=== PATIENT | female | born 1995 | race Caucasian/White ===

== ENCOUNTER 2017-09-14 10:24 | Day surgery (SDC) | payer OTHER ==
[2017-09-14] MEDS ORDERED: Acetaminophen 500 MG TAB PO SCH (10:45)
[2017-09-14] MEDS ORDERED: Iron Sucrose Complex 500 MG in Sodium Chloride 0.9% 250 ML 250 ML IVPB SCH (11:15)
[2017-09-14 12:02] VITALS: BMI 27.3
[2017-09-14 12:17] VITALS: BP 100/60; TEMP 98.1
[2017-09-14] MEDS ORDERED: FLU VACC QS2017-18 36 mo. & older 0.5 ML SYRINGE IM ONE (12:30)
--- NOTE | 2017-09-14 14:26 | PDOC.LDHP ---
Labor and Delivery H&P Chief complaint: other (iron infusion) HPI: 22 yo @ 34.2 wks by 13.1 wk sono c/w LMP presents for an iron infusion. Pt denies vb, vaginal discharge. Reports contractions that come and go. Endorses normal movement. Endorses ruq pain that occurs daily and is described as sharp; Diagnosed with biliary colic in clinic and dietary restrictions and ER precautions provided. Current gestational age (weeks): 34 (34.2) Due date: 10/24/17 Dating criteria: last menstrual period Grav: 4 Para: 2 (2112) OB History Details: 2017 current : [place] 92% 07/14/2017; male 2016 twin gestation; spontaneous PTL with of twin A male@ 30 wks with prolonged NICU stay and PPH d/t retained placenta with subsequent D&C and EBL 150cc requiring 3U PRBC; demise at 16 wks of twin B 2014 41 wks no complications female 2013 39 wks no complications male Current complications: other (Anemia of ; GERD vs Cholelithiasis; Failed 1 Hr GGT) Abnormal US findings: No (cervical length 4.02 (prior PTL)) Past Medical History: 1.)Biliary colic Current medications: pre- vitamins, iron (PO and IV) Previous surgical history: none, other (D&C in 2016 for retained placenta) Social history: none - Physical Exam Vital signs reviewed and normal: yes (FHT: 140s) General: NAD, resting Heart: RRR Lungs: CTAB Abdomen: gravid Extremeties: no edema - OB Labs Blood type: O RH: positive Antibody Screen: negative HIV: negative RPR: negative HEPSAg: negative 1 hour GCT: positive 3 hour GTT: unknown (done today) GBS: unknown Urine drug screen: not done Rubella: immune Additional Labs: gonorrehea 04/2017 negative chlamydia 04/2017 negative quad screen: negative - Assessment 22 yo @ 34.2 wks by 13.1 wk sono c/w LMP presents for an iron infusion, complaining of daily ruq abdominal pain, diagnosed recently with biliary colic. - Plan -: 1.sIUP: pt at 34.2 @ 13.1 week sono cw LMP. Complains of righ upper quadrant pain. see below. Otherwise, continue routine care. 2.Anemia of , here for her first iron infusion. 3.Biliary colic-recommend follow-up in clinic with workup of cbc, cmp, and ruq ultrasound for persistent biliary colic/ruq pain. Pt's bps have been normal so no suspicion at this point for preE. <Alessandra Gomez - Last Filed: 09/14/17 15:56> <Wilfred Swenson - Last Filed: 09/14/17 16:38> Allergies/Adverse Reactions: Allergies Allergy/AdvReac Type Severity Reaction Status Date / Time No Known Allergies Allergy Verified 09/14/17 12:00 Attending Addendum - Attending Addendum Date/Time: 09/14/17 0123 I personally evaluated the patient and discussed the management with Dr. Marr. I agree with the History, Examination, Assessment and Plan documented above with any addition or exceptions noted below. Iron infusion. Follow up tomorrow in clinic. Denies abd pain to me today. ED warnings discussed. <Wilfred Swenson - Last Filed: 09/14/17 16:38>
== END 2017-09-14 15:50 | disposition home or self-care (01) ==
LOC: L&D/OP 10:24
PROVIDERS: ATTEND Emergency Medicine
DX: O99.013 Anemia complicating pregnancy, third trimester (principal); O99.89 Other specified diseases and conditions complicating pregnancy, childbirth and the puerperium; R10.11 Right upper quadrant pain; Z3A.34 34 weeks gestation of pregnancy; Z79.899 Other long term (current) drug therapy
CPT/HCPCS: J1756; J7050

== ENCOUNTER 2017-09-25 23:01 | Day surgery (SDC) | payer OTHER ==
[2017-09-25 23:34] VITALS: BP 112/62; TEMP 98.1; BMI 27.3
--- NOTE | 2017-09-26 | PDOC.LDHP ---
Labor and Delivery H&P Chief complaint: abdominal pain HPI: 22 yo at 35.6 by 13.2 wk US here with complaint of lower abdominal pain that started this afternoon after she lifted a case of water. She describes the pain as aching pain that starts on the lateral sides of her abdomen and radiates into her inguinal area. She denies loss of fluid, vaginal bleeding, decreased motion. She complains of infrequent contractions. Her has been complicated by anemia and is s/p Fe infusion. Current gestational age (weeks): 35 (35.6) Due date: 10/24/17 Dating criteria: first trimester ultrasound Grav: 4 Para: 3 (2102) Current complications: other (anemia) Current medications: none Previous surgical history: none Social history: none - Physical Exam Vital signs reviewed and normal: yes General: NAD Heart: RRR Lungs: CTAB Abdomen: gravid Extremeties: no edema FHT: category 1, variability present, absent or minimal variables [place] contractions every: few, inconsistent - Vaginal Exam cm dilated: 0 Effacement: 0% Station: -3 - OB Labs Blood type: O RH: positive Antibody Screen: negative HIV: negative RPR: negative HEPSAg: negative 1 hour GCT: positive (141) 3 hour GTT: unknown GBS: unknown Rubella: immune - Assessment Pain most consistent with round ligament pain - Plan -: Cat 1 strip, Baseline 130, for entire monitoring period. Few, inconsistent contractions. No loss of fluid, bleeding, or decreased movement. Continue to monitor. If no changes on monitor or symptoms, will send home with labor precautions. <James Guevara - Last Filed: 09/26/17 00:13> <Cha Chavarria - Last Filed: 09/26/17 00:28> Allergies/Adverse Reactions: Allergies Allergy/AdvReac Type Severity Reaction Status Date / Time No Known Allergies Allergy Verified 09/14/17 12:00 Attending Addendum - Attending Addendum Date/Time: 09/26/17 0026 I personally evaluated the patient and discussed the management with Dr. Guevara. I agree with the History, Examination, Assessment and Plan documented above. <Cha Chavarria - Last Filed: 09/26/17 00:28>
== END 2017-09-26 00:20 | disposition home or self-care (01) ==
LOC: L&D/OP 23:01
PROVIDERS: ATTEND Obstetrics & Gynecology
DX: O99.89 Other specified diseases and conditions complicating pregnancy, childbirth and the puerperium (principal); R10.30 Lower abdominal pain, unspecified; O99.011 Anemia complicating pregnancy, first trimester; D64.9 Anemia, unspecified; Z3A.13 13 weeks gestation of pregnancy; Z79.899 Other long term (current) drug therapy
CPT/HCPCS: 99282

== ENCOUNTER 2017-10-25 23:09 | Inpatient (IN) | payer MEDICAID, OTHER, SELFPAY ==
[2017-10-25 14:32] VITALS: BMI 28.5
--- NOTE | 2017-10-25 15:09 | PDOC.LDHP ---
Labor and Delivery H&P Chief complaint: abdominal pain, decreased movement, other (hip pain) HPI: 22yo at 40.1wk by LMP C/W 13.2wk US who presents to [facility] L&D with dec FM over the last week, worsened today. Does endorse episode of FM when I walked in to examine pt today. Also c/o hip pain that radiates to back and abd. Has not tried tylenol or benadryl qhs for symptom improvement. Drinkin 3-4 bottles of water per day. No fevers, chills, VB, ctx, LOF, discharge or other concerning symptoms. Current gestational age (weeks): 40 (40w1d) Due date: 10/24/17 Dating criteria: last menstrual period, first trimester ultrasound Grav: 4 OB History Details: h/o prior x 2 complications: 1) anemia s/p iron infusion 2) prior delivery at 30wk of mo-di-twin gestation with IUFD of Twin B at 16wks gestation due to TTS, retained placenta s/p D&C 3) short interpregnancy interval Current complications: none Abnormal US findings: No Past Medical History: anemia Current medications: pre-corey vitamins, iron Previous surgical history: dilation and curettage Allergies/Adverse Reactions: Allergies Allergy/AdvReac Type Severity Reaction Status Date / Time No Known Allergies Allergy Verified 09/14/17 12:00 Social history: none - Physical Exam Vital signs reviewed and normal: yes Abnormal vital signs: none (BP, temp & pulse wnl) General: NAD, resting Heart: RRR Lungs: nonlabored breathing Abdomen: NTTP Extremeties: no edema FHT: category 1, variability present [place] contractions every: none - Vaginal Exam cm dilated: 4 (cephalic) Effacement: 50% Station: -1 - OB Labs Blood type: O RH: positive Antibody Screen: negative HIV: negative RPR: negative HEPSAg: negative 1 hour GCT: positive (141) 3 hour GTT: passed GBS: negative Urine drug screen: not done Rubella: immune Additional Labs: Hgb 8 --> 10 s/p iron infusion - Assessment 22yo 1) Term sIUP, rule out labor 2) round ligament pain - Plan Plan: observation in L&D -: Obs in L&D for cervical change and start of labor
--- NOTE | 2017-10-25 15:39 | PDOC.LDHP ---
Labor and Delivery H&P HPI: Patient of the Clinic Seen with Dr Felipa Payan CC: Contractions at 40 weeks (sure dates) 22 yo (Hx twins with one IUFD with remainder twin PTB at 30 weeks, with D&C for retained placenta), here for contractions. No LOF, no HE, no trauma. Otherwise well. NOTE: Patient has full H&P handwritten in progress notes Review of Systems: Complete ROS completed and negative as per HPI Current gestational age (weeks): 40 Dating criteria: last menstrual period Grav: 4 Para: 3 (2103 (Parity)) Current complications: none Abnormal US findings: No Past Medical History: Hx IV Iron infusion this Current medications: pre-corey vitamins Allergies/Adverse Reactions: Allergies Allergy/AdvReac Type Severity Reaction Status Date / Time No Known Allergies Allergy Verified 09/14/17 12:00 - Physical Exam Vital signs reviewed and normal: yes General: NAD Heart: RRR Lungs: CTAB Abdomen: gravid - Vaginal Exam cm dilated: 4 Effacement: 75% Station: -1 - Assessment L&D Assessment: term patient in labor - Plan Plan: admit to L&D, labor augmentation if indicated (As patient is 40 weeks, we will keep in L&D and augment if needed (initial exam 4-5cm).), GBS antibiotic prophylaxis (if needed), anesthesia consult for pain management
--- NOTE | 2017-10-25 16:04 | PDOC.LDPN ---
Labor & Delivery Progress Note - Subjective Subjective: comfortable - Objective Vital signs reviewed and normal: yes General: resting Uterine fundus: non tender FHT: category 1, variability present [place] contractions every: 10 min - Assessment (1) Term Code(s): Z34.80 - ENCOUNTER FOR SUPRVSN OF NORMAL , UNSP TRIMESTER Current Visit: Yes Status: Acute (2) Anemia affecting in third trimester Code(s): O99.013 - ANEMIA COMPLICATING , THIRD TRIMESTER Current Visit: Yes Status: Acute Plan: pitocin for augmentation -: Discussed R/B/A of admission to hospital with augmentation of labor with pitocin vs. membrane stripping and given late latent labor and prior complications, pt elects to be admitted to hospital for augmentation of labor now. GBS neg. Undecided regarding epidural/pain mgmt. Will admit pt to L&D and begin pitocin.
[2017-10-25] MEDS: Lactated Ringer's 1,000 ML IV SCH ×2 (16:20→19:03)
[2017-10-25 16:51] LABS: Hemoglobin 10.3 g/dL (12.0-16.0); Mean Corpuscular HGB CONC 32.3 g/dL (32.0-36.0); Mean Corpuscular Hemoglobin 21.7 pg (27.0-31.0); Mean Corpuscular Volume 67.3 fl (81.0-99.0); Mean Platelet Volume 5.2 fL (7.4-10.4); Platelet Count 282 thou/uL (130-400); RBC Distribution Width 23.8 % (11.5-14.5); Red Blood Cell (RBC) Count 4.76 mill/uL (4.20-5.40); White Blood Cell (WBC) Count 5.9 thou/uL (4.8-10.8)
--- NOTE | 2017-10-25 17:22 | PDOC.LDPN ---
Labor & Delivery Progress Note - Subjective Subjective: painful contractions - Objective Vital signs reviewed and normal: yes Abnormal vital signs: VSS, bps 110s/70s General: breathing through contractions Uterine fundus: non tender SVE: deferred FHT: category 1, variability present [place] contractions every: 3-4 min - Assessment (1) Term Code(s): Z34.80 - ENCOUNTER FOR SUPRVSN OF NORMAL , UNSP TRIMESTER Current Visit: Yes Status: Acute (2) Anemia affecting in third trimester Code(s): O99.013 - ANEMIA COMPLICATING , THIRD TRIMESTER Current Visit: Yes Status: Acute Plan: continue plan of care, pitocin for augmentation -: 22 yo here for augmentation of labor post-dates now with painful contractions- order epidural for pain control. continue POC.
[2017-10-25 17:23] LABS: HBSAg Index 0.33 S/CO (0-0.99); Hep B Surf Ag Non-Reactive S/CO (NonReactive); Syphilis Antibody Nonreactive (Nonreactive); Syphilis Antibody Index 0.04 S/CO (<1.00 Non-Reactive)
--- NOTE | 2017-10-25 19:46 | PDOC.LDPN ---
Labor & Delivery Progress Note - Subjective Subjective: comfortable, no concerns - Objective Vital signs reviewed and normal: yes General: NAD, resting Uterine fundus: non tender SVE: 4/50/-1 FHT: category 1, variability present [place] contractions every: 2-4 min - Assessment (1) Term Code(s): Z34.80 - ENCOUNTER FOR SUPRVSN OF NORMAL , UNSP TRIMESTER Current Visit: Yes Status: Acute (2) Anemia affecting in third trimester Code(s): O99.013 - ANEMIA COMPLICATING , THIRD TRIMESTER Current Visit: Yes Status: Acute Plan: continue plan of care, pitocin for augmentation -: Pt unchanged by SVE after 3.5-4 hrs on pitocin. Epidural in place for pain mgmt. Currently in latent labor. Will continue to monitor and continue expectant mgmt to minimize excessive interventions. Discussed POC with Dr. Cleary who agrees with the above. <Felipa Payan - Last Filed: 10/25/17 19:44> Plan: continue plan of care, pitocin for augmentation (Faculty Note: As patient still in latent phase (4cm) without indication for internals at this time, we will not perform AROM. Continue pitocin trial of induction for 12 hours and if no cervical change and no immediate indication for continued induction, we may consider rest after 12 hours if still the same. ) <John Cleary - Last Filed: 10/25/17 19:53>
[~2017-10-25 23:09] MED LIST: Acetaminophen 325 MG TAB PO PRN; Acetaminophen 500 MG TAB PO PRN; Bupivacaine 0.25% 10 ML VIAL EPIDURAL ONE; Bupivacaine 0.5% 10 ML VIAL ONE; Bupivacaine 0.5% 20 ML, fentaNYL Citrate/PF 400 MCG in Sodium Chloride 0.9% 72 ML EPIDURAL SCH; Communication Order-Pharmacy FS SCH; DISCONTINUE ALL PREVIOUS NARCOTICS FS SCH; Eucerin (Mineral Oil/Petrolatum,White) 30 gm Jar TOP PRN; Fentanyl 100 MCG/2 ML VIAL I-THECAL ONE; Fentanyl 100 MCG/2 ML VIAL ONE; Fentanyl 4mcg/Marcaine 0.1% Cassette 100 ML EPIDURAL SCH; LR 500 ML/Oxytocin 10 units 500 ML IV SCH; Lactated Ringer's 500 ML IV PRN; Lidocaine 1% (PF) 30 ML VIAL ONE; NS / Oxytocin 40 units/1000ml 1,000 ML ONE; Naloxone HCl 0.4 mg/ml Vial IVP PRN; Ondansetron HCl/PF 4 MG/2 ML Vial IVP PRN; Promethazine HCl 25 MG/ML VIAL IM PRN; diphenhydrAMINE 50 MG/ML VIAL IVP PRN; ePHEDrine/0.9% NaCl/PF SYRINGE 50 mg/10 ml SLOW IVP PRN
--- NOTE | 2017-10-25 23:26 | PDOC.OPDEL ---
OB Operative/Delivery Note Delivery Dr/Surgeon: Sergei/Schuyler. faculty=Cleary Pre-Delivery Diagnosis: active labor Procedure/Post Delivery Dx: spontaneous vaginal delivery Anesthesia: epidural - Findings A Sex: male - 1 min: 8 - 5 min: 9 - Additional Findings/Plan Placenta delivered: spontaneous (Mike) Repaired Obstetrical Laceration: 2nd degree (Repaired by Enrique under my observation/supervision) Estimated blood loss: 300 Compilations/Other Findings: Vigorous male. Apgars 8/9 Counts correct Post delivery plan: routine recovery
[2017-10-25] MEDS ORDERED: Ibuprofen 800 MG TAB PO SCH (23:45)
[2017-10-26] MEDS ORDERED: Bisacodyl 10 MG SUPP PR PRN (00:14)
[2017-10-26] MEDS ORDERED: Preparation H Ointment 28 GM TUBE PR PRN (00:14)
[2017-10-26] MEDS ORDERED: Benzocaine/Menthol 20-0.5% 60 ML CAN TOP PRN (00:14)
[2017-10-26] MEDS ORDERED: Milk Of Magnesia 30 ML UDCUP PO PRN (00:14)
[2017-10-26] MEDS ORDERED: NS / Oxytocin 40 units/1000ml 1,000 ML IV SCH (00:14)
[2017-10-26] MEDS ORDERED: diphenhydrAMINE 25 MG CAP PO PRN (00:14)
[2017-10-26] MEDS ORDERED: Lanolin Ointment 7 GM TUBE TOP PRN (00:14)
[2017-10-26] MEDS ORDERED: NS / Oxytocin 40 units/1000ml 1,000 ML ONE (01:04)
--- NOTE | 2017-10-26 05:41 | PDOC.PP ---
Post Progress Note Post Day #: 1 Subjective: 22 yo now 4 pp day 1. @ 2244 10/25/17 with 2nd degree perineal lac. Pt currently resting comfortably in bed, denies pain. Tolerating po and ambulating. PO intake tolerated: yes Flatus: no Ambulation: yes Vital Signs (12 hours) Temp Pulse Resp BP Pulse Ox 10/26/17 03:30 97.9 F 72 18 111/73 10/26/17 02:23 98.2 F 71 18 126/70 10/26/17 01:15 97.8 F 72 18 98 10/25/17 20:41 98.1 F 78 18 Weight Weight 82.554 kg - Physical Examination General: NAD Cardiovascular: no m/r/g, RRR Respiratory: clear to auscultation bilaterally, non-labored breathing Abdominal: + bowel sounds, lochia (scant), no distention, appropriately TTP Fundus firm & at: umbilicus Neurological: no gross focal deficits Result Diagrams: 10/25/17 16:30 Additional Labs: Post Labs Blood Type O POSITIVE 10/25/17 16:30 Hep Bs Antigen Non-Reactive S/CO (NonReactive) 10/25/17 16:30 (1) Term delivered Code(s): O80 - ENCOUNTER FOR FULL-TERM UNCOMPLICATED DELIVERY Status: Acute - Assessment/Plan 22 yo now 4 pp day 1 s/p w/ 2nd degree perineal laceration, repaired and EBL of 300mL. Currently pain well controlled, tolerating po, ambulating and has voided after richardson removal. Continue stool softener pain management with tylenol and ibuprofen. Dermoplast prn.
[2017-10-26] MEDS: Ibuprofen 800 MG TAB PO SCH ×4 (05:58→23:45)
--- NOTE | 2017-10-26 06:14 | PDOC.PP ---
Post Progress Note Post Day #: 0-1 Subjective: Doing well. PO intake tolerated: yes Flatus: yes Vital Signs (12 hours) Temp Pulse Resp BP Pulse Ox 10/26/17 03:30 97.9 F 72 18 111/73 10/26/17 02:23 98.2 F 71 18 126/70 10/26/17 01:15 97.8 F 72 18 98 10/25/17 20:41 98.1 F 78 18 Weight Weight 182 lb - Physical Examination General: NAD Cardiovascular: no m/r/g Respiratory: clear to auscultation bilaterally Abdominal: lochia, appropriately TTP Extremities: negative homans (B) Neurological: no gross focal deficits Psychiatric: A&Ox3, normal affect Result Diagrams: 10/25/17 16:30 Additional Labs: Post Labs Blood Type O POSITIVE 10/25/17 16:30 Hep Bs Antigen Non-Reactive S/CO (NonReactive) 10/25/17 16:30 (1) Vaginal delivery Code(s): O80 - ENCOUNTER FOR FULL-TERM UNCOMPLICATED DELIVERY Status: Acute - Assessment/Plan Plan: No acute issues. Patient is day 0 to 1 later this PM. BPs normotensive. Probable discharge home tomorrow Monday. Case reviewed with Manish Mai ([employer]ident it sales consultant). Routine care.
[2017-10-26] MEDS: Prenatal Vitamin 1 TAB PO SCH (09:20)
[2017-10-26] MEDS: Docusate Calcium (SURFAK) 240 MG CAP PO SCH ×2 (09:20→21:47)
[2017-10-26] MEDS: Ferrous Sulfate 325 MG TAB PO SCH ×2 (09:20→17:43)
[2017-10-26] MEDS: Acetaminophen 325 MG TAB PO PRN ×2 (14:15→21:46)
[2017-10-26 23:18] VITALS: BP 105/60; TEMP 98.3
[2017-10-27] MEDS: Ibuprofen 800 MG TAB PO SCH (05:39)
--- NOTE | 2017-10-27 05:53 | PDOC.PP ---
Post Progress Note Post Day #: 1-2 Subjective: 22 yo [id number] day 1-2 delivered via . No acute events overnight. Pt reports some pain and sore mm throughout body. Pain is moderately well controlled with Ibuprofen, tylenol and dermoplast. Denies cp, nvdc. Tolerating PO, flatus, voiding, scant lochia. PO intake tolerated: yes Flatus: yes Ambulation: yes Vital Signs (12 hours) Temp Pulse Resp BP Pulse Ox 10/26/17 21:00 98.3 F 62 18 105/60 98 Weight Weight 82.554 kg - Physical Examination General: NAD Cardiovascular: no m/r/g, RRR Respiratory: clear to auscultation bilaterally, non-labored breathing Abdominal: + bowel sounds, lochia (scant rubra), no distention, appropriately TTP Extremities: negative homans (B) Neurological: no gross focal deficits Psychiatric: normal affect Result Diagrams: 10/25/17 16:30 Additional Labs: Post Labs Blood Type O POSITIVE 10/25/17 16:30 Hep Bs Antigen Non-Reactive S/CO (NonReactive) 10/25/17 16:30 (1) Term delivered Code(s): O80 - ENCOUNTER FOR FULL-TERM UNCOMPLICATED DELIVERY Status: Acute - Assessment/Plan continue pain control with Ibuprofen and tylenol scheduled. plan for dc to home today with f/u in 2 weeks w/ P[facility] <Javi Urbina - Last Filed: 10/27/17 05:55> Vital Signs (12 hours) Temp Pulse Resp BP Pulse Ox 10/26/17 21:00 98.3 F 62 18 105/60 98 Weight Weight 182 lb Result Diagrams: 10/25/17 16:30 Additional Labs: Post Labs Blood Type O POSITIVE 10/25/17 16:30 Hep Bs Antigen Non-Reactive S/CO (NonReactive) 10/25/17 16:30 <Nikolay Mitchell - Last Filed: 10/27/17 07:56> Attending Addendum - Attending Addendum Date/Time: 10/27/17 3361 I personally evaluated the patient and discussed the management with Dr. Urbina I agree with the History, Examination, Assessment and Plan documented above with any addition or exceptions noted below. Pt given precautions. <Nikolay Mitchell - Last Filed: 10/27/17 07:56>
[2017-10-27] MEDS: Docusate Calcium (SURFAK) 240 MG CAP PO SCH (09:35)
[2017-10-27] MEDS: Ferrous Sulfate 325 MG TAB PO SCH (09:35)
[2017-10-27] MEDS: Prenatal Vitamin 1 TAB PO SCH (09:35)
== END 2017-10-27 12:10 | disposition home or self-care (01) | DRG 775 ==
LOC: L&D/OP 23:09 → EDSTATUS 23:40 → L&D 23:43 → 3SW 10-26 01:12
PROVIDERS: ADMIT Obstetrics & Gynecology; ATTEND Obstetrics & Gynecology
PROC: 10E0XZZ Delivery of Products of Conception, External Approach (ICD-10-PCS; principal; 2017-10-25)
PROC: 0HQ9XZZ Repair Perineum Skin, External Approach (ICD-10-PCS; 2017-10-25)
DX: O70.1 Second degree perineal laceration during delivery (principal); O99.02 Anemia complicating childbirth; D64.9 Anemia, unspecified; Z3A.40 40 weeks gestation of pregnancy; Z37.0 Single live birth
CPT/HCPCS: 36415; 51702; 85027; 86780; 86850; 86900; 86901; 87340; 99285; J2001; J3010; J3490; J7050; J7120

== ENCOUNTER 2018-09-21 14:06 | Day surgery (SDC) | payer OTHER ==
[2018-09-21] MEDS ORDERED: Acetaminophen 500 MG TAB PO PRN (14:57)
[2018-09-21 15:07] VITALS: BMI 26.6
--- NOTE | 2018-09-21 15:24 | PDOC.FPROB ---
FMR OB H&P: HPI - History of Present Illness Chief Complaint: Iron infusion History of Present Illness: 23 yo at 31.2 wk dated by 19.4 wk US. Presents for iron infusion due to anemia and intolerance of PO iron. H&H during has trended from 9.9 to 8.1. She has a history of anemia with and required a blood transfusion in 2016. Primary Care Physician: [facility] FMR OB H&P: Current - Care : 5 Para: 3104 Gestational age: 31.2 Due date: 11/21/18 Dating Criteria: 19.4 wk US Course/Complications: Anemia, late to care, pyelonephritis. - OB Labs Blood type: O RH: positive Antibody Screen: negative HIV: negative RPR: negative HepBsAg: negative Rubella: immune Quad screen: unknown Urine drug screen: not done Gonorrhea: negative Chlamydia: negative Pap Smear: no record available 1 hour gtt: 129 GBS: unknown H&H: see HPI - First Trimester Ultrasound First trimester: performed at 19.4 wk. - Anatomy Survey Anatomy survey: posterior placenta, S=D, normal anatomy. FMR OB H&P: History - Past Medical History PMH: anemia of , blood transfusion - OB History OB History: Hx twin delivery with twin B demise at 16 wk. Twin A born at 30 wk and has developmental problems. Other deliveries normal. 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 - Surgical History Sx History: None - Social History Social History: Unremarkable - Family History Family History: HTN FMR OB H&P: Medications - Current Home Medications: Medication Instructions Recorded Confirmed Type No Known 09/21/18 09/21/18 History Allergies/Adverse Reactions: Allergies Allergy/AdvReac Type Severity Reaction Status Date / Time No Known Allergies Allergy Verified 09/14/17 12:00 FMR OB H&P: ROS - Review of Systems General: denies: fever/chills, weight/appetite/sleep changes Eyes: denies: eye pain, vision changes ENT: denies: nasal congestion, rhinorrhea Cardiovascular: denies: chest pain, palpitation Respiratory: denies: cough, congestion Gastrointestinal: denies: abdominal pain, indigestion Genitourinary (Female): denies: incontinence, dysuria Musculoskeletal: denies: pain, stiffness, tenderness Neurologic: denies: numbness, syncope Integumentary: denies: itching, rash Breast: denies: lumps, bumps Endocrine: denies: cold intolerance, heat intolerance Hematologic/Lymphatic: denies: prolonged or excessive bleeding Psychological: denies: depression, anxiety FMR OB H&P: Vital Signs - Maternal Vital signs: 105/58, pulse 73, resp 16, Temp 98.2F - Heart Tones Baseline: 140 Variability: moderate Acceleration: present Deceleration: absent Category: category 1 (reactive NST) [place] contractions every: none FMR OB H&P: Physical Exam - Physical Exam General: NAD, awake, alert and oriented HEENT: normocephalic and atraumatic, no scleral icterus Neck: supple, FROM Heart: RRR, normal S1/S2 General: CTAB, no respiratory distress Abdomen: soft, gravid Musculoskeletal: normal gait and station, pulses present Neurological: no tremor, no focal deficit Skin: no rash, good tugor Psychiatric: intact recent and remote memory, good judgement and insight FMR OB H&P: A/P - Problem List (1) Anemia affecting fifth Status: Acute Code(s): O99.019 - ANEMIA COMPLICATING , UNSPECIFIED TRIMESTER; O09.40 - SUPERVISION OF W GRAND MULTIPARITY, UNSP TRIMESTER (2) Status: Acute Qualifiers: Weeks of gestation: 31 weeks Qualified Code(s): Z3A.31 - 31 weeks gestation of Disposition: 1. Anemia of with intolerance of PO iron: outpatient iron infusion started. No anemia evaluation ordered so drawing Iron, TIBC, Ferritin, and % saturation before starting infusion. 2. Supervision grandmultip 3rd trimester: late to care but otherwise unremarkable . Discussion: Date/Time: 09/21/181519 This H&P was discussed with Dr. Logan who agree with the above documentation and plan. Addendum - Attending - Attending Attestation Date/Time: 09/21/181812 I personally evaluated the patient and discussed the management with Dr. Rosado I agree with the History, Examination, Assessment and Plan documented above with any addition or exceptions noted below. Patient here for iron infusion. Severe iron deficiency anemia. Unable to tolerate PO iron. FHT reactive. Will pretreat prior to infusion. Ok to d/c once complete. Follow up with [facility]. Micki
[2018-09-21] MEDS ORDERED: Iron Sucrose Complex 500 MG in Sodium Chloride 0.9% 250 ML 250 ML IVPB SCH (15:30)
[2018-09-21 17:06] LABS: Iron 15 ug/dL (50-170); Iron Binding Capacity, Total 459 mcg/dL (265-497)
== END 2018-09-21 21:33 | disposition home or self-care (01) ==
LOC: L&D/OP 14:06
PROVIDERS: ATTEND Emergency Medicine
DX: O99.013 Anemia complicating pregnancy, third trimester (principal); D50.9 Iron deficiency anemia, unspecified; O09.43 Supervision of pregnancy with grand multiparity, third trimester; Z3A.31 31 weeks gestation of pregnancy
CPT/HCPCS: 36415; 82728; 83540; 83550; 96361; 96365; 96366; 99284; J1756; J7050

== ENCOUNTER 2018-11-13 00:17 | Day surgery (SDC) | payer OTHER ==
[2018-11-13 00:51] VITALS: BP 116/76; TEMP 98.1; BMI 27.0
--- NOTE | 2018-11-13 01:26 | PDOC.FPROB ---
FMR OB H&P: HPI - History of Present Illness Chief Complaint: decreased movement and lower abdominal pain Indentification: History of Present Illness: The patient is a 23YO @ 38.5 weeks by LMP & 19.4wk sono who presented to L&D with a CC of decreased movement and lower abdominal pain. Regarding the decreased movement, the patient reports that she has only felt the fetus move ~ 4 x today and the last time was about 1 hour ago. She denies any vaginal bleeding, itching, pain, or discharge but did feel a small leakage of fluid around noon yesterday and noticied some clear fluid in her underwear. Regarding her abdominal pain, the patient reports having a constant, crampy lower abdominal pain for the last 3 days with a sharp radiating pain into her left inner thigh. She states that the pain is somewhat relieved but laying still but is not relieved with tylenol and is exacerbated with movement. She denies any associated fever/chills, N/V, or dysuria. Primary Care Physician: STAR Marr FMR OB H&P: Current - Care : 5 Para: 3104 Gestational age: 38.5 weeks Due date: 11/21/2018 Dating Criteria: LMP & 19.4 week sono Course/Complications: anemia in requiring 1 iron infusion on 09/21/18 - OB Labs Blood type: O RH: positive Antibody Screen: negative HIV: negative RPR: negative HepBsAg: negative Rubella: immune Gonorrhea: negative Chlamydia: negative 1 hour gtt: 129 GBS: negative H&H: 10.3/32 on 10/21/18 FMR OB H&P: History - Past Medical History PMH: none - OB History OB History: 4 prior pregnancies: #1 @ 39 weeks #2 @ 41 weeks #3 twin gestation with PTL & delivery of twin A @ 30 weeks & stillbirth of twin B @ 16 weeks #4 @ 40 weeks - Surgical History Sx History: none - Social History Social History: No TAD. - Family History Family History: Mom- HTN FMR OB H&P: Medications - Current Home Medications: Medication Instructions Recorded Confirmed Type No Known 09/21/18 11/13/18 History Allergies/Adverse Reactions: Allergies Allergy/AdvReac Type Severity Reaction Status Date / Time No Known Allergies Allergy Verified 11/13/18 00:45 FMR OB H&P: ROS - Review of Systems General: denies: fever/chills, weight/appetite/sleep changes Eyes: reports: eye pain, floaters. denies: vision changes, scotomas Cardiovascular: denies: chest pain, edema Respiratory: reports: shortness of breath. denies: cough Gastrointestinal: reports: abdominal pain, cramping. denies: nausea, vomiting Genitourinary (Female): denies: dysuria, hematuria, vaginal discharge, vaginal pain, vaginal bleeding, contractions, vaginal pressure Musculoskeletal: reports: pain Neurologic: denies: loss of counsciousness, headache FMR OB H&P: Vital Signs - Maternal Vital signs: Vital Signs - First Documented Temp Pulse Resp BP 98.1 F 86 18 116/76 11/13/18 00:44 11/13/18 00:44 11/13/18 00:44 11/13/18 00:44 - Heart Tones Baseline: 110 Variability: moderate Acceleration: present Deceleration: absent [place] contractions every: 7-20 minutes FMR OB H&P: Physical Exam - Physical Exam General: NAD, awake, alert and oriented HEENT: normocephalic and atraumatic, conjunctiva clear, grossly normal vision, grossly normal hearing Neck: supple, FROM Heart: RRR, normal S1/S2, no murmurs/rubs/gallops, pulses present, no edema General: CTAB, no respiratory distress, good air movement, no rales/rhonchi, no wheezing, no retractions Abdomen: soft, gravid, non-tender Musculoskeletal: pulses present, FROM in all four extremities Neurological: cranial nerves II through XII intact, sensation to pain,touch and proprioception grossly normal, no focal deficit Skin: no rash, good tugor, capillary refill <2 seconds, no jaundice Lymphatic: no unusual bruising or bleeding, no purpura, no petechia Psychiatric: intact recent and remote memory, good judgement and insight, normal mood and affect - Pelvic Exam Vulva: normal hair distribution, no masses, no lesions, no blood, normal rugae Deviation from normal: scant amount of thin white discharge w/ no obvious pooling noted FMR OB H&P: A/P - Problem List (1) Decreased movement Status: Acute Code(s): O36.8190 - DECREASED MOVEMENTS, UNSP TRIMESTER, UNSP (2) Abdominal pain Status: Acute Code(s): R10.9 - UNSPECIFIED ABDOMINAL PAIN (3) Anemia affecting fifth Status: Acute Code(s): O99.019 - ANEMIA COMPLICATING , UNSPECIFIED TRIMESTER; O09.40 - SUPERVISION OF W GRAND MULTIPARITY, UNSP TRIMESTER (4) Status: Acute Qualifiers: Weeks of gestation: 31 weeks Qualified Code(s): Z3A.31 - 31 weeks gestation of (5) History of stillbirth in patient in third trimester, antepartum Status: Acute Code(s): O09.293 - SUPRVSN OF PREG W POOR REPRODCTV OR OBSTET HX , THIRD TRI (6) History of labor, current Status: Acute Code(s): O09.219 - SUPRVSN OF PREG W HISTORY OF PRE-TERM LABOR, UNSP TRIMESTER Disposition: Decreased movement: - FHTs reassuring --> reactive NST with baseline in the 110s and multiple accels lasting at least 15 seconds and greater than 15 beats above baseline within a 20 minute period. - Mom reassured of well-being. Abdominal pain: - Most likely 2/2 pelvic MSK strain in late . However, given region of pain with r/o a possible UTI & treat PRN based on results of straight cath UA. - Will substance abuse counselor on taking regularly scheduled tylenol for more adequate pain control. Leakage of fluid: - Will R/O SROM with amnisure. Sterile speculum exam did not reveal any pooling. anemia in : - Aware, patient s/p 1 iron infusion this . Is not taking PO iron or PNVs due to reports of them making her sick. S/p an iron infusion the first of September. Reports recently having bloodwork done to assess the need for another infusion and is waiting to hear back regarding the results. Will instruct her to f/u at [facility] regarding this. RUQ in : - Patient has not yet had a RUQ U/S. Waiting to hear back to schedule this. Will instruct her to f/u on this as instructed by her PCP at [facility]. sIUP @ 38.5 weeks: - Aware, will instruct to keep regular f/u appt at [facility] upon likely discharge. late to [facility] h/o stillbirth h/o PTL @ 30 weeks Discussion: Date/Time: 11/13/18 0126 This H&P was discussed with Dr. Olmstead who agrees with the above documentation and plan. Addendum - Attending - Attending Attestation Date/Time: 11/13/18 671 I personally evaluated the patient and discussed the management with Dr. Combs at time of evaluation last night. I agree with the History, Examination, Assessment and Plan documented above with any addition or exceptions noted below.
[2018-11-13 02:43] LABS: Amnisure Internal Control QC ACCEPTABLE (ACCEPTABLE)
[2018-11-13 02:51] LABS: Amnisure Test No Membranes Rupture (No Rupture); Bilirubin Negative (Negative); Blood, Urine Negative (Negative); Clarity CLEAR (Clear); Glucose, Urine (Dipstick) Negative (Negative); Leukocyte Small (Negative); Nitrite Negative (Negative); Protein, Urine (Dipstick) Negative (Neg-Trace); Specific Gravity, Urine 1.013 (1.002-1.036); Urobilinogen 0.2 mg/dL (0.2-1.0)
[2018-11-13 02:52] LABS: Bacteria/HPF None Seen HPF (None Seen); Hyaline Casts/LPF 0-3 HYALINE CAST LPF (0-3 Hyaline); RBC/HPF 0-3 HPF (0-3); Squamous Epithelial 0-3 HPF (0-3)
== END 2018-11-13 03:23 | disposition home or self-care (01) ==
LOC: L&D/OP 00:17
PROVIDERS: ATTEND Family Medicine
DX: O36.8130 Decreased fetal movements, third trimester, not applicable or unspecified (principal); O99.89 Other specified diseases and conditions complicating pregnancy, childbirth and the puerperium; R10.30 Lower abdominal pain, unspecified; O99.013 Anemia complicating pregnancy, third trimester; O09.43 Supervision of pregnancy with grand multiparity, third trimester; O09.293 Supervision of pregnancy with other poor reproductive or obstetric history, third trimester; O09.213 Supervision of pregnancy with history of pre-term labor, third trimester; Z3A.38 38 weeks gestation of pregnancy
CPT/HCPCS: 51701; 81001; 84112; 99284

== ENCOUNTER 2020-04-02 11:55 | Outpatient (CLI) | payer OTHER ==
[2020-04-02 19:07] LABS: SARS-CoV-2 MS2 Positive; SARS-CoV-2 N Gene Negative; SARS-CoV-2 S Gene Negative; SARS-CoV-2 by NAA Not Detected (NotDetected); SARS-CoV-2 orf1ab Negative
== END 2020-04-02 11:56 | disposition home or self-care (01) ==
LOC: LABSCS 11:55
PROVIDERS: ATTEND Student in an Organized Health Care Education/Training Program
DX: Z20.828 Contact with and (suspected) exposure to other viral communicable diseases (principal)
CPT/HCPCS: 87635; U0003

== ENCOUNTER 2020-04-04 15:36 | Day surgery (SDC) | payer MEDICAID, OTHER ==
[2020-04-04] MEDS ORDERED: Acetaminophen 500 MG TAB PO SCH (16:30)
[2020-04-04] MEDS ORDERED: Iron Sucrose Complex 500 MG in Sodium Chloride 0.9% 250 ML 250 ML IVPB SCH (16:30)
[2020-04-04 16:37] VITALS: BP 113/66; TEMP 98.2; BMI 27.0
--- NOTE | 2020-04-04 19:21 | PDOC.FPROB ---
FMR OB H&P: HPI - History of Present Illness Chief Complaint: Iron infusion Indentification: 24 yo @ 35 wga History of Present Illness: Pt is 24 yo female who presents to L&D for iron infusion. [facility] records are not available at this time, so all history is obtained from patient. Per the patient, she has anemia outside of and was told to come to L&D for an iron infusion. She takes a vitamin and oral iron at home. She endorses weakness and occasional headache relieved with tylenol. She denies vaginal bleeding, vaginal discharge, dysuria, LOF, contractions, SOB, chest pain, swelling of extremities. She endorses movement. 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: Denies hx of abnormal paps, denies hx of STIs - Surgical History Sx History: Denies - Social History Social History: Denies t/a/d - Family History Family History: Denies family history of medical/genetic conditions FMR OB H&P: Medications - Current Home Medications: Medication Instructions Recorded Confirmed Type No Known 09/21/18 04/04/20 History Allergies/Adverse Reactions: Allergies Allergy/AdvReac Type Severity Reaction Status Date / Time No Known Allergies Allergy Verified 04/04/20 16:22 FMR OB H&P: ROS - Review of Systems General: denies: fever/chills Eyes: denies: vision changes ENT: denies: nasal congestion Cardiovascular: denies: chest pain, edema Respiratory: denies: cough, shortness of breath Gastrointestinal: reports: abdominal pain Genitourinary (Female): denies: dysuria, vaginal discharge, vaginal bleeding, contractions Musculoskeletal: denies: pain, swelling Neurologic: reports: headache Integumentary: denies: rash Psychological: denies: depression, anxiety FMR OB H&P: Vital Signs - Maternal Vital signs: Vital Signs - First Documented Temp Pulse Resp BP 98.2 F 77 18 113/66 04/04/20 16:12 04/04/20 16:12 04/04/20 16:12 04/04/20 16:12 FMR OB H&P: Physical Exam - Physical Exam General: NAD HEENT: normocephalic and atraumatic, EOMI Neck: supple, FROM Heart: RRR, normal S1/S2 General: CTAB, no respiratory distress Abdomen: gravid, non-tender Musculoskeletal: FROM in all four extremities Neurological: cranial nerves II through XII intact, sensation to pain,touch and proprioception grossly normal Skin: no rash, no jaundice Lymphatic: no unusual bruising or bleeding, no purpura, no petechia Psychiatric: intact recent and remote memory, good judgement and insight FMR OB H&P: A/P Disposition: 24 yo at 35 wga presents to L&D for iron infusion Chronic anemia vs. anemia of - patient reports history of anemia outside of , unable to review records - sent to L&D for iron infusion - will give iron infusion and then DC patient home - continue patient's routine care sIUP - 35 wga - FHT: reactive, baseline 130 - toco: no contractions Dispo: will DC home following completion of iron infusion; patient instructed to continue her scheduled follow up Discussion: Date/Time: 04/04/20 1914 This H&P was discussed with Dr. Rosado who agrees with the above documentation and plan. Addendum - Attending - Attending Attestation Date/Time: 04/05/20 1121 I personally evaluated the patient and discussed the management with Dr. Borrero. I agree with the History, Examination, Assessment and Plan documented above with any addition or exceptions noted below. I personally saw and evaluated the patient on 04/04/20 at 1845. tolerated iron infusion well.
[2020-04-05] MEDS ORDERED: FLU VACC QS2020-21(6MOS UP)/PF 60 MCG/0.5 ML SYRINGE IM ONE (09:00)
== END 2020-04-04 21:07 | disposition home or self-care (01) ==
LOC: L&D/OP 15:36
PROVIDERS: ATTEND Family Medicine
DX: O99.013 Anemia complicating pregnancy, third trimester (principal); D64.9 Anemia, unspecified; O09.213 Supervision of pregnancy with history of pre-term labor, third trimester; Z3A.35 35 weeks gestation of pregnancy
CPT/HCPCS: 96361; 96365; 96366; 99283; J1756; J7050

== ENCOUNTER 2020-05-04 10:55 | Inpatient (IN) | payer MEDICAID, OTHER, SELFPAY ==
[2020-05-04 11:37] VITALS: BMI 27.0
[2020-05-04] MEDS ORDERED: Penicillin G Potassium 5 MILL.UNITS VIAL ONE (11:54)
[2020-05-04] MEDS ORDERED: Bupivacaine 0.5% 20 ML, fentaNYL Citrate/PF 400 MCG in Sodium Chloride 0.9% 72 ML EPIDURAL SCH (12:00)
[2020-05-04] MEDS ORDERED: DISCONTINUE ALL PREVIOUS NARCOTICS FS SCH (12:00)
[2020-05-04] MEDS ORDERED: Ondansetron PF 4 MG/2 ML Vial IVP PRN ×3 (12:07→15:32)
[2020-05-04] MEDS ORDERED: Methylergonovine 0.2 MG/ML VIAL IM PRN (12:07)
[2020-05-04] MEDS ORDERED: Promethazine HCl 25 MG/ML VIAL IM PRN ×2 (12:07→12:47)
[2020-05-04] MEDS ORDERED: Ibuprofen 800 MG TAB PO PRN (12:07)
[2020-05-04] MEDS ORDERED: Lidocaine 1% (PF) 30 ML VIAL SC PRN (12:07)
[2020-05-04] MEDS ORDERED: NS / Oxytocin 40 units/1000ml 1,000 ML IV PRN (12:07)
[2020-05-04] MEDS ORDERED: Acetaminophen 500 MG TAB PO PRN (12:07)
[2020-05-04] MEDS ORDERED: hydrALAZINE 20 MG/ML VIAL SLOW IVP PRN ×2 (12:07→15:32)
[2020-05-04] MEDS ORDERED: Misoprostol 200 MCG TAB PR PRN (12:07)
[2020-05-04] MEDS ORDERED: Carboprost 250 MCG/ML AMP IM PRN (12:07)
[2020-05-04] MEDS ORDERED: Lidocaine 1% (PF) 30 ML VIAL ONE (12:08)
[2020-05-04] MEDS ORDERED: Penicillin G 2.5 MILL.units 2.5 MILL.UNITS in Premix Bag 1 BAG IVPB SCH (12:15)
[2020-05-04] MEDS ORDERED: Lactated Ringer's 1,000 ML IV SCH (12:15)
[2020-05-04] MEDS ORDERED: Penicillin G Potassium 5 MILL.UNITS in Sodium Chloride 0.9% 100 ML IVPB SCH (12:15)
[2020-05-04 12:22] LABS: Hemoglobin 11.1 g/dL (12.0-16.0); Mean Corpuscular HGB CONC 30.9 g/dL (32.0-36.0); Mean Corpuscular Hemoglobin 20.4 pg (27.0-31.0); Mean Corpuscular Volume 66.1 fL (78.0-98.0); Mean Platelet Volume 6.3 fL (7.4-10.4); Platelet Count 242 thou/uL (130-400); RBC Distribution Width 23.7 % (11.5-14.5); Red Blood Cell (RBC) Count 5.43 mill/uL (4.20-5.40); White Blood Cell (WBC) Count 5.9 thou/uL (4.8-10.8)
--- NOTE | 2020-05-04 12:22 | PDOC.FPROB ---
FMR OB H&P: HPI - History of Present Illness Chief Complaint: Contractions History of Present Illness: Patient is a 24 year old who presents to L&D with complains of contractions since last pm. Contractions have progressively strengthened in intensity and are now every minute. Seen in clinic this am, found to be 5/60/-2, and sent to L&D for labor. + FM. Denies LOF, vaginal bleeding and abnormal vaginal discharge. Reports morning headaches for the past 2 weeks. Denies hx of HTN but says BP was elevated in clinic this am. Denies vision changes, chest pain, SOB, upper abdominal pain and lower extremity edema. Primary Care Physician: [facility] FMR OB H&P: Current - Care : 6 Para: 4105 Gestational age: 40.0wk Due date: 05/04/20 Dating Criteria: 23.1wk US Course/Complications: Hx GBS bacteruria with treatmnt. Anemia during requiring iron infusion on 04/04/20. Late to care. Right pyelectasis, resolved on US 02/20. - OB Labs Blood type: O RH: positive Antibody Screen: negative HIV: negative RPR: negative HepBsAg: negative Rubella: immune Gonorrhea: negative Chlamydia: negative Pap Smear: NILM 1 hour gtt: 156 GBS: positive H&H: 8.2/26.8 Platelets: 286 - Additional Ultrasound Additional: 02/25/20: posterior placenta, EFW 71%, breech FMR OB H&P: History - Past Medical History PMH: Migraines - OB History OB History: 08/21/13 @ 39 wk, , 2nd degree lac 08/07/14 @ 41 wk, 08/17/15 @ 30 wk, twin B stillbirth at 16 wk, PPH with transfusion, retained placenta 10/25/17 @ 40 wk, , 2nd degree lac 10/27/18 @ 40wk, , 2nd degree lac - 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 No hx STI. No hx of abnormal pap smear. - Surgical History Sx History: D&C due to retained placenta with stillborn at 30 wk - Social History Social History: Denies tobacco use, ETOH use and drug use - Family History Family History: HTN FMR OB H&P: Medications - Current Home Medications: Medication Instructions Recorded Confirmed Type Comb No.42/Folic Acid 1 tab PO DAILY 05/04/20 05/04/20 History [Prena1 Chewable Tablet] Allergies/Adverse Reactions: Allergies Allergy/AdvReac Type Severity Reaction Status Date / Time No Known Allergies Allergy Verified 04/04/20 16:22 FMR OB H&P: ROS - Review of Systems General: denies: fever/chills Eyes: denies: vision changes, double vision ENT: denies: rhinorrhea Cardiovascular: denies: chest pain, palpitation, edema Respiratory: denies: shortness of breath Gastrointestinal: denies: abdominal pain (upper), vomiting, diarrhea Genitourinary (Female): denies: dysuria, vaginal discharge, vaginal bleeding Musculoskeletal: denies: pain Neurologic: denies: numbness, headache Integumentary: denies: rash FMR OB H&P: Vital Signs - Heart Tones Baseline: 150 Variability: moderate Acceleration: present Deceleration: absent Category: category 1 [place] contractions every: Q2min FMR OB H&P: Physical Exam - Physical Exam General: NAD, awake, alert and oriented HEENT: MMM, conjunctiva clear Neck: FROM, trachea midline Heart: RRR, normal S1/S2, no murmurs/rubs/gallops, no edema General: CTAB, no respiratory distress Abdomen: gravid, non-tender Musculoskeletal: FROM in all four extremities Neurological: no focal deficit Skin: no jaundice Lymphatic: no purpura, no petechia Psychiatric: normal mood and affect - Pelvic Exam Deviation from normal: /-1 Membranes: Intact, bulging bag Presentation: Cephalic, confirmed with US FMR OB H&P: A/P Disposition: at 40.0 wk by 23.1wk US who was referred from clinic for contractions [place] IUP Grand Multiparity at 40.0wks. GBS + with hx of bacteruria. Labs otherwise negative. -Start on PCN ppx -Confirmed cephalic presentation with US -Desires epidural -Desires Mirena IUD PP 0900 in clinic: /-2 1200: /-1, cat 1 strip Hx PPH s/p blood transfusion PPH with transfusion and retained placenta during 3rd -Oxytocin, carboprost, misoprostol will be in room during delivery -Type and Screen x 2 ordered Hx anemia in Received iron transfusion in 04/07. On PNV -CBC ordered Hx twin Stillbirth at 30 wks in 3rd with long-term effect on living twin including missing L side of brain, neurological dysfunction. -MFM followed Late to care -Dated by 23.1wk US Right pyelectasis -MFM followed -Resolved on US 02/20 Hx migraines -Aware Discussion: Date/Time: 05/04/20 1220 This H&P was discussed with [Lucie Villar] and [Alonzo] who agree with the above documentation and plan. Addendum - Attending - Attending Attestation Date/Time: 05/04/20 1536 I personally evaluated the patient and discussed the management with Dr. Zamorano. I agree with the History, Examination, Assessment and Plan documented above with any addition or exceptions noted below. Presented in labor. expectant management. GBS PPX. no augmentation until second dose PCN. Anticipate she will deliver before this.
[2020-05-04] MEDS ORDERED: Lactated Ringer's 500 ML IV PRN (12:47)
[2020-05-04] MEDS ORDERED: diphenhydrAMINE 50 MG/ML VIAL IVP PRN (12:47)
[2020-05-04] MEDS ORDERED: Naloxone HCl 0.4 mg/ml Vial IVP PRN ×2 (12:47)
[2020-05-04] MEDS ORDERED: Communication Order-Pharmacy FS SCH (13:00)
[2020-05-04] MEDS ORDERED: Fentanyl 4 mcg/Bupivacaine 0.1% Cassette 100 ML EPIDURAL SCH (13:00)
[2020-05-04 13:29] LABS: HBSAg Index 0.25 S/CO (0-0.99); Hep B Surf Ag Non-Reactive S/CO (NonReactive)
[2020-05-04 13:31] LABS: Syphilis Antibody Nonreactive (Nonreactive); Syphilis Antibody Index 0.04 S/CO (<1.00 Non-Reactive)
--- NOTE | 2020-05-04 14:01 | PDOC.LDPN ---
Labor & Delivery Progress Note - Subjective Subjective: comfortable - Objective Vital signs reviewed and normal: yes General: NAD Uterine fundus: non tender Dilation: 7 Effacement: 90% Station: -1 FHT: category 1 (baseline 150, + accels, no decels, moderate variability ), variability present [place] contractions every: 1-2 min Plan: continue plan of care -: at 40.0 wk by 23.1wk US who was admitted to L&D for contractions [place] IUP Grand Multiparity at 40.0wks. GBS + with hx of bacteruria. Labs otherwise negative. -Started on PCN ppx @ 1238 05/04 -Confirmed cephalic presentation with US -Epidural in place -Desires Mirena IUD PP 0900 in clinic: /-2 1200: /-1, cat 1 strip 1345: /1, cat 1 strip Hx PPH s/p blood transfusion PPH with transfusion and retained placenta during 3rd -Oxytocin, carboprost, misoprostol will be in room during delivery -Type and Screen x 2 ordered Hx anemia in Received iron transfusion in 04/07. On PNV -CBC: Hgb 11 Hx twin Stillbirth at 30 wks in 3rd with long-term effect on living twin including missing L side of brain, neurological dysfunction. -MFM followed Late to care -Dated by 23.1wk US Right pyelectasis -MFM followed -Resolved on US 02/20 Hx migraines -Aware Dispo: Continue plan of care
[2020-05-04] MEDS ORDERED: Misoprostol 200 MCG TAB ONE (14:26)
[2020-05-04] MEDS ORDERED: Milk Of Magnesia 30 ML UDCUP PO PRN (15:32)
[2020-05-04] MEDS ORDERED: diphenhydrAMINE 25 MG CAP PO PRN (15:32)
[2020-05-04] MEDS ORDERED: Benzocaine-Menthol 82.5 ML CAN TOP PRN (15:32)
[2020-05-04] MEDS ORDERED: Bisacodyl 10 MG SUPP PR PRN (15:32)
[2020-05-04] MEDS ORDERED: Lanolin Ointment 7 GM TUBE TOP PRN (15:32)
[2020-05-04] MEDS ORDERED: Preparation H Ointment 28 GM TUBE PR PRN (15:32)
[2020-05-04] MEDS ORDERED: NS / Oxytocin 40 units/1000ml 1,000 ML IV SCH (15:45)
--- NOTE | 2020-05-04 16:18 | PDOC.OPDEL ---
OB Operative/Delivery Note - Additional Findings/Plan Compilations/Other Findings: Delivering Physician: Drs. Zamorano/Atif Attending: Dr. Rosado Procedure: Spontaneous Vaginal Delivery Anesthesia: epidural QBL: 74 ml Pre-op Diagnosis: 1. Term intrauterine in labor 2. Grand multiparity 3. Hx PPH s/p blood transfusion 4. Hx anemia of 5. Late to care 6. Right pyelectasis, resolved 7. Hx twin 8. Hx migraines Post-op Diagnosis: 1. Term intrauterine , delivered 2. same as above Indications: A 24 y/o female presents in active labor Delivery Note: This is 24 yo F @ 40.0 wks who delivered a viable M infant at 1458 on 05/04. Following an uneventful antepartum course, a vigorous M was delivered over an intact perineum in the occipitoanterior position. Anterior Shoulder and then remainder of the body delivered. No nuchal cord. The head was held down and mouth and nares were bulb suctioned. Cord clamped and cut and cord blood collected. Placenta delivered [place] intact with a 3 vessel cord noted. Fundal massage was performed and the fundus was firm. The cervix and vagina were inspected. 2nd degree laceration was noted and repaired with 3-0 vicryl in the usual fashion with good approximation. Infant went to nursery in good condition for routine care. Apgars were 8/9 at 1 & 5 minutes, respectively. Patient tolerated delivery well and went to after routine recovery/care. ATTENDING ADDENDUM: I was present for and supervised all critical steps of this procedure. I agree with the above documentation.
[2020-05-04] MEDS: Ibuprofen 800 MG TAB PO SCH (20:22)
[2020-05-05] MEDS: Ibuprofen 800 MG TAB PO SCH ×3 (05:52→21:37)
[2020-05-05] MEDS ORDERED: Adacel (T-DAP) 0.5 ML SYRINGE IM ONE (09:00)
[2020-05-05] MEDS ORDERED: FLU VACC QS2020-21(6MOS UP)/PF 60 MCG/0.5 ML SYRINGE IM ONE (09:00)
[2020-05-05] MEDS: Ferrous Sulfate 325 MG TAB PO SCH (09:01)
[2020-05-05] MEDS: Prenatal Vitamin 1 TAB PO SCH (09:01)
[2020-05-05 09:25] LABS: SARS-CoV-2 MS2 Positive; SARS-CoV-2 N Gene Negative; SARS-CoV-2 S Gene Negative; SARS-CoV-2 by NAA Not Detected (NotDetected); SARS-CoV-2 orf1ab Negative
--- NOTE | 2020-05-05 10:02 | PDOC.PP ---
Post Progress Note Post Day #: 1 Subjective: Patient reports mild headache. Denies vision changes. Also complains of low abdominal cramping. Has not received pain medication overnight. Denies chest pain, SOB, nausea, upper abdominal pain and edema. + Lochia but denies passing clots or BRB. No BM yet but passing gas. Experiencing mild burning with urination. PO intake tolerated: yes Flatus: yes Ambulation: no Vital Signs (12 hours) Temp Pulse Resp BP Pulse Ox 05/05/20 08:55 98.5 F 62 18 113/70 99 05/05/20 04:03 98.1 F 60 18 123/75 05/05/20 00:50 98.2 F 65 18 112/64 Weight Weight 80.739 kg - Physical Examination General: NAD Cardiovascular: no m/r/g, RRR Respiratory: clear to auscultation bilaterally, non-labored breathing Abdominal: + bowel sounds, lochia, no distention, appropriately TTP Extremities: negative homans (B) Neurological: no gross focal deficits Psychiatric: A&Ox3, normal affect Result Diagrams: 05/04/20 12:07 Additional Labs: Post Labs Hep Bs Antigen Non-Reactive S/CO (NonReactive) 05/04/20 12:31 Blood Type O POSITIVE 05/04/20 12:07 - Assessment/Plan delivered KENYA Overton via on 05/04 @ 1458. PP Day 1. Post Day #1 -F/u on BM. Currently passing flatus. -Instructed patient to ask for PRN pain medications. Will change medications to scheduled if pain persists. -Lochia present. Monitor for bleeding -Desires Mirena IUD PP Hx PPH s/p blood transfusion -PPH with transfusion and retained placenta during 3rd -Given cytotec immediately PP as prophylaxis Hx anemia in -H/H stable Hx twin Stillbirth at 30 wks in 3rd with long-term effect on living twin including missing L side of brain, neurological dysfunction. -Aware Late to care -Aware Hx migraines -Aware Dispo: Discharge on 05/06 pending routine maternal course Addendum - Attending - Attending Attestation Date/Time: 05/06/20 1639 I personally evaluated the patient and discussed the management with Dr. Zamorano yesterday. I agree with the History, Examination, Assessment and Plan documented above with any addition or exceptions noted below.
[2020-05-05] MEDS: Acetaminophen 325 MG TAB PO PRN (15:36)
[2020-05-06] MEDS: Ibuprofen 800 MG TAB PO SCH ×2 (06:21→14:09)
--- NOTE | 2020-05-06 06:25 | PDOC.PP ---
Post Progress Note Post Day #: 2 Subjective: The patient says she is pain free. She is ambulating well without pain. + flatus. Patient received stool softener yesterday afternoon and believes she will have a BM soon. She denies headache, vision changes, chest pain, SOB, abdominal pain and edema. + Scant lochia. PO intake tolerated: yes Flatus: yes Ambulation: yes Vital Signs (12 hours) Temp Pulse Resp BP Pulse Ox 05/05/20 21:35 97.4 F L 60 18 103/58 L 98 Weight Weight 80.739 kg - Physical Examination General: NAD Cardiovascular: no m/r/g, RRR Respiratory: clear to auscultation bilaterally, non-labored breathing Abdominal: + bowel sounds, lochia, no distention, appropriately TTP Deviation from normal: Uterus palpable ~ 2 cm under umbilicus Extremities: negative homans (B) Neurological: no gross focal deficits Psychiatric: A&Ox3 Result Diagrams: 05/04/20 12:07 Additional Labs: Post Labs Hep Bs Antigen Non-Reactive S/CO (NonReactive) 05/04/20 12:31 Blood Type O POSITIVE 05/04/20 12:07 - Assessment/Plan delivered KENYA Overton via on 05/04 @ 1458. PP Day 2. Post Day #2 -Currently passing flatus. Receiving stool softeners. -Scant lochia present -Desires Mirena IUD PP. Will f/u with [facility]. Hx PPH s/p blood transfusion -PPH with transfusion and retained placenta during 3rd -Given cytotec immediately PP as prophylaxis Hx anemia in -H/H stable Hx twin Stillbirth at 30 wks in 3rd with long-term effect on living twin including missing L side of brain, neurological dysfunction. -Aware Late to care -Aware Hx migraines -Aware Dispo: Discharge this afternoon. Will f/u with [facility] for routine PP care. Addendum - Attending - Attending Attestation Date/Time: 05/06/20 1032 I personally evaluated the patient and discussed the management with Dr. Zamorano. I agree with the History, Examination, Assessment and Plan documented above with any addition or exceptions noted below.
[2020-05-06 07:52] VITALS: BP 99/61; TEMP 97.9
[2020-05-06] MEDS: Ferrous Sulfate 325 MG TAB PO SCH (08:29)
[2020-05-06] MEDS: Prenatal Vitamin 1 TAB PO SCH (08:31)
[2020-05-06] MEDS: Acetaminophen 325 MG TAB PO PRN (09:31)
== END 2020-05-06 17:00 | disposition home or self-care (01) | DRG 807 ==
LOC: L&D 10:55 → 3SW 17:43
PROVIDERS: ADMIT Family Medicine; ATTEND Family Medicine
PROC: 10E0XZZ Delivery of Products of Conception, External Approach (ICD-10-PCS; principal; 2020-05-05)
PROC: 0KQM0ZZ Repair Perineum Muscle, Open Approach (ICD-10-PCS; 2020-05-05)
PROC: 3E02340 Introduction of Influenza Vaccine into Muscle, Percutaneous Approach (ICD-10-PCS; 2020-05-05)
DX: O99.824 Streptococcus B carrier state complicating childbirth (principal); Z37.0 Single live birth; O99.354 Diseases of the nervous system complicating childbirth; O99.02 Anemia complicating childbirth; O70.1 Second degree perineal laceration during delivery; Z3A.40 40 weeks gestation of pregnancy; Z20.828 Contact with and (suspected) exposure to other viral communicable diseases; D50.9 Iron deficiency anemia, unspecified; G43.909 Migraine, unspecified, not intractable, without status migrainosus
CPT/HCPCS: 36415; 51702; 85027; 86780; 86850; 86900; 86901; 87340; 87635; J2540; J3010; J3490; U0003